=== PATIENT | male | born 1965 | race Caucasian/White ===

== ENCOUNTER 2019-02-15 21:36 | Inpatient (IN) | payer SELFPAY ==
[~2019-02-15] VITALS: Ht 167.6 cm; Wt 93.0 kg
[2019-02-15 21:36] VITALS: BP_SYST 130
--- NOTE | 2019-02-15 21:36 | NUR ---
Pt [facility] [employer] space operations officer for medical clearance. Per armored vehicle officer, on the way to long-term, pt began to c/o C/P. Upon arrival, pt c/o anterior C/P 10/09, non-radiating. Pt states that C/P onset around 1400 during an argument with his . Pt verbalizes drinking alcohol, smells of ETOH. 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
--- NOTE | 2019-02-15 21:36 | NUR ---
Pt placed to [facility] chair. Dr. Ron notified of pt.'s c/o C/P.
--- NOTE | 2019-02-15 21:40 | NUR ---
Pt placed on case monitor.
--- NOTE | 2019-02-15 22:15 | NUR ---
Pt verbalizes improvement in C/P. Dr. Ron notified.
--- NOTE | 2019-02-15 22:45 | NUR ---
Dr. Ron assessing pt.
--- NOTE | 2019-02-15 23:15 | NUR ---
Pt ambulatory to X-ray, accompanied by court registry officer.
--- NOTE | 2019-02-15 23:22 | NUR ---
Lab present to draw blood.
[2019-02-15 23:33] LABS: BASOPHILS # (AUTO) 0.1 K/uL (0.0-0.2); EOSINOPHILS % (AUTO) 0.4 % (0.0-4.0); HEMATOCRIT 46.6 % (36-54); HEMOGLOBIN 16.1 g/dL (14.0-18.0); LYMPHOCYTES # (AUTO) 1.7 K/uL (1.0-5.5); LYMPHOCYTES % (AUTO) 15.1 % (20.5-51.5); MEAN CORPUSCULAR HEMOGLOBIN 30 pg (27-31); MEAN CORPUSCULAR HGB CONC 35 % (32-36); MEAN CORPUSCULAR VOLUME 86 fL (79.0-98.0); MONOCYTES # (AUTO) 0.4 K/uL (0.0-1.0); MONOCYTES % (AUTO) 3.7 % (1.7-9.3); NEUTROPHILS # (AUTO) 8.7 K/uL (1.8-7.7); NEUTROPHILS % (AUTO) 79.8 % (40.0-70.0); PLATELET COUNT (AUTO) 372 K/uL (130-430); RED BLOOD CELL COUNT(AUTO) 5.46 MIL/uL (4.2-6.2); RED CELL DISTRIBUTION WIDTH 13.9 % (9.0-15.0); WHITE BLOOD COUNT (AUTO) 10.9 K/uL (4.8-10.8)
--- NOTE | 2019-02-15 23:40 | NUR ---
Pt denies c/o C/P. No needs verbalized. juvenile justice officer at side.
[2019-02-15 23:48] LABS: ANION GAP 14 (5-15); CALCIUM 8.9 mg/dL (8.4-11.0); CHLORIDE 105 mmol/L (98-107); GLUCOSE 107 mg/dL (70-99); POTASSIUM 4.2 mmol/L (3.5-5.1); SODIUM SERUM 141 mmol/L (136-145); UREA NITROGEN, BLOOD 8 mg/dL (8-21)
[2019-02-15 23:55] LABS: BILIRUBIN,URINE NEGATIVE (NEGATIVE); CLARITY/URINE CLEAR (CLEAR); COLOR,URINE YELLOW (YELLOW); GLUCOSE,URINE NEGATIVE (NEGATIVE); KETONES,URINE NEGATIVE (NEGATIVE); LEUKOCYTE ESTERASE ,URINE NEGATIVE (NEGATIVE); NITRITE, URINE NEGATIVE (NEGATIVE); PH,URINE 5.5 (5.0-8.0); PROTEIN URINE NEGATIVE (NEGATIVE); UROBILINOGEN,URINE 0.2 (0.2-1.0)
[2019-02-15 23:56] LABS: ALANINE AMINOTRANSFERASE 47 U/L (12-78); ALBUMIN 4.4 g/dL (3.4-4.8); ASPARTATE AMINOTRANSFERASE 29 U/L (10-37); TOTAL BILIRUBIN 0.5 mg/dL (0.0-1.0)
[2019-02-15 23:57] LABS: BLOOD, URINE TRACE (NEGATIVE)
[2019-02-16 00:07] LABS: GFR AFRICAN AMERICAN 114 mL/min (>90)
[2019-02-16 00:14] LABS: BACTERIA,URINE FEW /HPF (None Seen); WBC,URINE 0-3 /HPF (0-3)
[2019-02-16 00:32] LABS: CKMB RELATIVE INDEX 0.8 (0.0-2.9); CREATINE KINASE MB 3.4 ng/mL (0-3.6)
[2019-02-16] MEDS ORDERED: ASPIRIN 325 MG TABLET PO ONE (00:45)
--- NOTE | 2019-02-16 00:53 | NUR ---
Pt moved to ER bed 08, to gown, to vehicle monitor technician. college service officer at bedside.
--- NOTE | 2019-02-16 01:30 | NUR ---
# 20 gauge angiocath placed to right wrist. Use of asceptic technique. Opsite placed over site. Blood return noted. Blood for lab drawn from site. Flushed with 10 cc of normal saline. No evidence of infiltration noted. Patient tolerated well.
--- NOTE | 2019-02-16 01:30 | NUR ---
Abhijeet weldon in [facility] - 02/16/19 at 0849 by SDEDAJ Pt to [facility].
--- NOTE | 2019-02-16 01:35 | NUR ---
Pt to [facility] via [facility].
--- NOTE | 2019-02-16 01:45 | NUR ---
Pt returns from [facility]. Denies c/o C/P or SOB, VSS. Peace officers at bedside.
--- NOTE | 2019-02-16 02:35 | NUR ---
ADMISSION NOTE Received patient from ER via darcy, received report from BERNARD VILLA. Patient admitted with diagnosis of CHEST PAIN. Patient oriented to hospital routine, call light, toileting and safety-patient verbalized understanding.
--- NOTE | 2019-02-16 02:45 | NUR ---
Patient will be admitted to care of Dr. Higgins. Admitted to Tele unit. Will go to room 123A. Belongings list completed. Summary report printed. Bedside report given to DAISY Harding. transportation security officer present with pt.
[2019-02-16 02:57] VITALS: BP_SYST 146
[2019-02-16 04:00] VITALS: BP_SYST 146
[2019-02-16] MEDS ORDERED: traMADol HCL HCL 50 MG TABLET (ULTRAM) PO PRN ×2 (04:00)
[2019-02-16] MEDS ORDERED: ACETAMINOPHEN 325 MG TABLET PO PRN (04:00)
--- NOTE | 2019-02-16 04:10 | NUR ---
MD ORDER MEDICATIONS Received call back order from Dr. Higgins. Pain medications Tylonel 650 mg Q4 PRN PO 1-3, Ultram 50 mg Q4 PRN PO 4-6, Ultram 100 mg Q4 PRN PO 7-10.
--- NOTE | 2019-02-16 05:14 | NUR ---
CONSULTATION PAGED/CALLED Reason for Consultation: CHEST PAIN Person Who was Notified: MARGIE Consulting Physician: [facility] CODER Awnings Mechanic Specialty: Ordering Physician: JENNIFER
--- NOTE | 2019-02-16 06:00 | NUR ---
MD ORDER MEDICATIONS Received call back from Dr. Higgins for anxiety medication, Ativan 1 mg PO PRN.
--- NOTE | 2019-02-16 06:48 | NUR ---
CLOSING NOTES Patient resting in bed. No signs of acute distress observed. All needs met at this time. IV site patent and dressings intact. Bed alarm on and lowest position. Will endorse care to oncoming shift.
[2019-02-16] MEDS: LORazepam 1 MG TABLET PO PRN ×3 (06:50→21:07)
[2019-02-16 08:00] VITALS: BP_SYST 162
[2019-02-16] MEDS ORDERED: cloNIDine HCL 0.1 MG TABLET PO ONE (10:45)
[2019-02-16 12:43] VITALS: BP_SYST 127
[2019-02-16] MEDS ORDERED: CARVEDILOL 6.25 MG TABLET (COREG) PO ONE (13:30)
[2019-02-16] MEDS ORDERED: ATORVASTATIN 20 MG TABLET PO ONE (13:30)
[2019-02-16] MEDS ORDERED: CARVEDILOL 12.5 MG TABLET (COREG) PO ONE (13:30)
--- NOTE | 2019-02-16 13:31 | NUR ---
[facility] WAS CALLED RE: ORDER OF DR BLACK TO GET MEDICAL RECORD (ANGIO REPORT, DISCHARGE SUMMARY, CONSULTATIONS, H/P). PER NURSING ACTIVE DIRECTORY ENGINEER DONALD, PT WAS ONLY THERE IN 2014 FOR ABDOMINAL PAIN. PT CLAIMED THAT HE HAD HIS ANGIO LAST NOVEMBER 2018. CHECKED ANOTHER [facility] WHICH ALSO SAID THAT PT WAS NOT THERE THIS YEAR BUT LAST 2013 FOR ETOH IN ER THEN WAS ALSO DISCHARGED SAME DAY. I REPORTED TO DR BLACK THAT PT WAS NOT IN ANY OF THE HOSPITALS FOR CARDIAC ISSUES THIS 2018.
--- NOTE | 2019-02-16 14:00 | NUR ---
Dr Higgins aware to see patient, and updated on present condition, and orders written. Diogo George RN
[2019-02-16] MEDS ORDERED: cloNIDine HCL 0.1 MG TABLET PO SCH ×2 (15:00→21:00)
[2019-02-16 16:09] VITALS: BP_SYST 129
[2019-02-16] MEDS ORDERED: LIP40 PO (16:39)
[2019-02-16] MEDS ORDERED: CARV6.2554 PO (16:39)
[2019-02-16] MEDS ORDERED: ASPI-1154 PO (16:39)
--- NOTE | 2019-02-16 18:35 | NUR ---
Called Dr Higgins with troponin results < .017, updated and orders written. Diogo George RN
--- NOTE | 2019-02-16 19:05 | NUR ---
OPENING NOTES Received patient resting in bed. No acute respiratory distress observed. Receptionist/Telephone Operator is at bedside and patient is handcuffed by left hand. Bed is at lowest position. Will continue to monitor.
[2019-02-16 20:00] VITALS: BP_SYST 158
--- NOTE | 2019-02-16 20:33 | NUR ---
PAGED: PAGED DR. RODRIGUEZ REGARDING ORDERS SPOKE WITH LINDA
--- NOTE | 2019-02-16 20:50 | NUR ---
CALLED DR RODRIGUEZ RE: MEDICAL EVALUATION REQUEST/HOLD DISCHARGE Spoke with Dr. Rodriguez, informed MD regarding "Medical Evaluation Request By Foreign Language Interpreter" form, requested by building drafting officer before discharge. Form was explained and read to Dr. Rodriguez over the phone. MD stated to hold discharge at this time, and have social scientist involved with case tomorrow morning. Patient and uniform patrol police officer informed of MD's orders.
[2019-02-16] MEDS ORDERED: QUEtiapine FUMARATE 100 MG TABLET PO SCH (21:00)
[2019-02-16] MEDS ORDERED: CARVEDILOL 12.5 MG TABLET (COREG) PO SCH ×2 (21:00)
--- NOTE | 2019-02-16 21:00 | NUR ---
ROUNDS/ ANXIOUS Patient resting in bed. Left hand handcuffed to bed rail. No signs of injury noted. Ophthalmic Aide at bedside. No acute respiratory distress observed. Patient complained of feeling anxious, Ativan will be administered per PRN order. Will continue to monitor and assess for side effects of medications.
[2019-02-16] MEDS: CARVEDILOL 6.25 MG TABLET (COREG) PO SCH (21:07)
--- NOTE | 2019-02-16 23:00 | NUR ---
ROUNDS Patient resting in bed. No signs of acute respiratory distress observed. present at bedside. Will continue to monitor.
[2019-02-17 00:44] VITALS: BP_SYST 145
--- NOTE | 2019-02-17 01:00 | NUR ---
ROUNDS Patient resting comfortably in bed. No signs of acute distress observed. Director Of Services at bedside with patient. Will continue to monitor.
--- NOTE | 2019-02-17 03:00 | NUR ---
ROUNDS Patient resting in bed with Nursery Nurse at bedside. Eyes closed. Will continue to monitor.
--- NOTE | 2019-02-17 05:00 | NUR ---
ROUNDS Patient is sleeping. No signs of discomfort. Catering Truck Driver at bedside. Will continue to monitor.
--- NOTE | 2019-02-17 06:19 | NUR ---
CLOSING NOTES Patient resting comfortably in bed. HOB elevated. No signs of acute distress or discomfort observed. All needs met at this time. Vessel Slagman at bedside. Hand cuff placed to Left hand, attached to bed rail, no signs of injury noted. Call light within reach, bed alarm on, and bed at lowest position. Will endorse care to oncoming shift.
--- NOTE | 2019-02-17 07:10 | NUR ---
OPENING NOTE: RECEIVED PATIENT FROM COMMERCIAL COLLECTOR NURSE. PATIENT IS SLEEPING IN BED. OFFICER AT BEDSIDE. NO SIGNS OF DISTRESS OR SHORTNESS OF BREATH NOTED. IV SITE IS PATENT WITH NO SIGNS OF INFILTRATION. PATIENT IS TOLERATING ROOM AIR AT 96%. SAFETY AND FALL PRECAUTIONS ARE IN PLACE. BED LOCKED IN LOWEST POSITION WITH CALL LIGHT IN REACH. WILL CONTINUE TO MONITOR PATIENT FOR ANY CHANGES. Addendum: 02/17/19 at 0942 by Sada Bergman RN PT IS HAND CUFFED TO THE BED ON HIS LEFT HAND, SKIN INTACT, NO SIGNS OF SKIN BREAKDOWN NOTED. LOADING RACK SUPERVISOR IS AT BEDSIDE FOR SAFETY.
[2019-02-17 08:31] VITALS: BP_SYST 125
[2019-02-17] MEDS: CARVEDILOL 6.25 MG TABLET (COREG) PO SCH (08:45)
[2019-02-17] MEDS ORDERED: ASPIRIN 81 MG TAB.CHEW PO SCH (09:00)
[2019-02-17] MEDS ORDERED: ATORVASTATIN 20 MG TABLET PO SCH (09:00)
--- NOTE | 2019-02-17 10:43 | NUR ---
RN ROUNDS: PATIENT IS LAYING DOWN IN BED ASLEEP. NO SIGNS OF DISTRESS OR SHORTNESS OF BREATH NOTED. PATIENT DENIES ANY PAIN AT THE MOMENT. IV SITE IS PATENT WITH NO SIGNS OF INFILTRATION. OFFICER IS AT BEDSIDE. BED LOCKED IN LOWEST POSITION WITH CALL LIGHT IN REACH. SAFETY PRECAUTIONS ARE IN PLACE. WILL CONTINUE TO MONITOR PATIENT FOR ANY CHANGES.
--- NOTE | 2019-02-17 11:06 | NUR ---
MD ROUNDS DR RODRIGUEZ ROUNDING AWARE OF PATIENT'S CONDITION, NEW ORDERS FOR PSYCHIATRIST TO SEE PT AND CLEAR HIM BEFORE DISCHARGE.
--- NOTE | 2019-02-17 11:19 | NUR ---
CONSULTATION CALLED FOR DR STEW AVERY FOR STATE CONSULT FOR PATIENT UNDER POLICE CUSTODY OF DEPRESSION ORDER BY DR Neil RODRIGUEZ SPOKE WITH [employer] FAXES FACE SHEET
[2019-02-17] MEDS ORDERED: DOCUSATE SODIUM 250 MG CAPSULE PO ONE (11:30)
[2019-02-17 12:00] VITALS: BP_SYST 111
--- NOTE | 2019-02-17 12:05 | NUR ---
RN ROUNDS: PATIENT IS ASLEEP IN BED. OFFICER AT BEDSIDE. NO SIGNS OF DISTRESS OR SHORTNESS OF BREATH NOTED. PATIENT DENIES ANY PAIN AT THIS TIME. SAFETY PRECAUTIONS ARE IN PLACE. BED LOCKED IN LOWEST POSITION WITH CALL LIGHT IN REACH. WILL CONTINUE TO MONITOR PATIENT FOR ANY CHANGES.
[2019-02-17] MEDS: LORazepam 1 MG TABLET PO PRN (14:08)
--- NOTE | 2019-02-17 14:20 | NUR ---
RN ROUNDS: PATIENT IS AWAKE IN BED. OFFICER AT BEDSIDE. NO SIGNS OF DISTRESS OR SHORTNESS OF BREATH NOTED. IV SITE PATENT WITH NO SIGNS OF INFILTRATION. BED LOCKED IN LOWEST POSITION WITH CALL LIGHT IN REACH. SAFETY PRECAUTIONS ARE IN PLACE. WILL CONTINUE TO MONITOR PATIENT FOR ANY CHANGES.
--- NOTE | 2019-02-17 15:08 | NUR ---
MEDICATION REASSESSMENT PT NO LONGER FEELS ANXIOUS, PT IN STABLE CONDITION, PT WATCHING TV WITH OFFICE NEXT TO HIM. WILL CONTINUE TO MONITOR PT FOR ANY CHANGES.
[2019-02-17 16:42] VITALS: BP_SYST 105
--- NOTE | 2019-02-17 16:44 | NUR ---
RN ROUNDS: PATIENT IS SLEEPING IN BED. NO SIGNS OF DISTRESS OR SHORTNESS OF BREATH NOTED. OFFICER AT BEDSIDE. PATIENT DENIES ANY PAIN AT THIS MOMENT. SAFETY PRECAUTIONS ARE IN PLACE. WILL CONTINUE TO MONITOR PATIENT FOR ANY CHANGES.
--- NOTE | 2019-02-17 18:31 | NUR ---
CLOSING NOTES: PATIENT IS SLEEPING IN BED. NO SIGNS OF DISTRESS OR SHORTNESS OF BREATH NOTED. PATIENT REPORTS NO PAIN AT THE MOMENT. OFFICER IS AT BEDSIDE. IV SITE IS PATENT WITH NO SIGNS OF INFILTRATION. SAFETY PRECAUTIONS REMAINED IN PLACE THROUGHOUT THE SHIFT. BED LOCKED IN LOWEST POSITION WITH CALL LIGHT IN REACH. WILL ENDORSE PATIENT TO ONCOMING AUTOMOBILE RENTAL CLERK NURSE. Addendum: 02/17/19 at 1848 by Jeanine Garcia RN PATIENT IS HANDCUFFED TO THE BED ON HIS LEFT HAND, SKIN IS INTACT WITH NO SIGNS OF SKIN BREAKDOWN NOTED. CHARTER PILOT AT BEDSIDE FOR SAFETY.
--- NOTE | 2019-02-17 19:15 | NUR ---
OPENING NOTES RECEIVED PATIENT IN BED AAO X4. AT BEDSIDE. PATIENT LEFT WRIST WITH HAND CUFFED. NO C/O PAIN AT THIS TIME. BREATHING UNLABORED ON ROOM AIR. BED IN LOWEST LOCKED POSITION. CALL LIGHT WITH IN REACH.
--- NOTE | 2019-02-17 20:02 | NUR ---
SHERIFF ISABELA ANGELO CALLED AND WANTED US TO CONTACT DOCTOR RODRIGUEZ LETTING HIM KNOW THAT THE PT WILL BE GOING TO [facility] AND THEY HAVE PSYCHIATRIC UNIT THERE IF HE STILL WANTS HIM TO BE EVALUATED THAT HE CAN ONCE ARRIVES. THEY WANTED TO KNOW IF THAT WOULD BE OK IF HE WOULD DISCHARGE HIM THERE. NOTIFIED CHARGE NURSE , RN WAS UNAVAILABLE. CHARGE NURSE SPOKE WITH DOCTOR RODRIGUEZ . ANY QUESTIONS WAS TO CALL [phone]
[2019-02-17 20:11] VITALS: BP_SYST 105
--- NOTE | 2019-02-17 20:15 | NUR ---
DISCHARGE ORDER PATIENT MADE AWARE THAT HE WILL BE DISCHARGE TO [facility]. PATIENT UPSET OF THIS TRANSFER. REFUSING VITAL SIGNS TO BE TAKEN.
--- NOTE | 2019-02-17 20:54 | NUR ---
DISCHARGED PATIENT DISCHARGED TO [facility] IN STABLE CONDITION ACCOMPANIED BY .
[2019-02-17] MEDS ORDERED: DOCUSATE SODIUM 250 MG CAPSULE PO SCH (21:00)
--- NOTE | 2019-02-18 04:51 | NUR ---
CALLED [facility]CHANGE TO CANCEL CONSULT FOR DR. AVERY I SPOKE WITH MARGIE ORDONEZ REASON PATIENT WAS CD
== END 2019-02-17 20:54 | DRG 313 ==
LOC: SED 21:36 → STU 02-16 00:54 → EDBD 02-16 00:54 → STU 02-16 01:59
PROVIDERS: ADMIT Internal Medicine; ATTEND Internal Medicine
DX: R07.89 Other chest pain (principal); F32.9 Major depressive disorder, single episode, unspecified; F43.10 Post-traumatic stress disorder, unspecified; I10 Essential (primary) hypertension; I25.10 Atherosclerotic heart disease of native coronary artery without angina pectoris; E78.5 Hyperlipidemia, unspecified; E66.9 Obesity, unspecified; I25.2 Old myocardial infarction; Z80.42 Family history of malignant neoplasm of prostate; Z82.49 Family history of ischemic heart disease and other diseases of the circulatory system; Z83.3 Family history of diabetes mellitus; Z79.899 Other long term (current) drug therapy; Z68.33 Body mass index [BMI] 33.0-33.9, adult
CPT/HCPCS: 36415; 71045; 80053; 81000-TC; 82550-TC; 82553-TC; 84484; 85025; 85379; 93005; 93306; 93971; 99285; G0378; G0482